=== PATIENT | female | born 1990 | race Caucasian/White ===

== ENCOUNTER 2017-09-22 16:04 | Emergency (ER) | payer OTHER, BC ==
[2017-09-22 16:15] VITALS: BP 115/80; PULSE 100; TEMP 97.8; BMI 21.7
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
[2017-09-22] MEDS ORDERED: ACETAMINOPHEN 500 MG TABLET (FP) PO ONE (18:13)
[2017-09-22] MEDS ORDERED: ACETAMINOPHEN 500 MG TABLET (FP) ONE (18:17)
== END 2017-09-22 19:15 | disposition home or self-care (01) ==
LOC: JERFT 16:04
DX: G44.319 Acute post-traumatic headache, not intractable (principal); V43.52XA Car driver injured in collision with other type car in traffic accident, initial encounter; Y92.414 Local residential or business street as the place of occurrence of the external cause; Y93.89 Activity, other specified; Y99.8 Other external cause status
CPT/HCPCS: 70450-TC; 72125-TC; 84703; 99281-25

== ENCOUNTER 2020-10-06 15:38 | Emergency (ER) | payer BC ==
[2020-10-06] MEDS ORDERED: SODIUM CHLORIDE 0.9% 500 ML INFUS.BAG IV ONE (15:41)
[2020-10-06] MEDS ORDERED: KETOROLAC TROMETHAMINE 30 MG/1 ML VIAL IVPUSH ONE (15:42)
[2020-10-06 15:52] VITALS: BP 110/76; PULSE 112; TEMP 98.4; BMI 22.8
[2020-10-06] MEDS ORDERED: KETOROLAC TROMETHAMINE 30 MG/1 ML VIAL ONE (16:13)
[2020-10-06 16:43] LABS: BASO % 0.2 % (0-2.0); EOS % 0.4 % (0-4.5); HEMATOCRIT 37.5 % (32.4-45.2); HEMOGLOBIN 12.6 GM/dL (10.7-15.3); LYMPH % 34.7 % (8-40); MCH 30.6 pg (25.7-33.7); MCHC 33.7 g/dl (32.0-36.0); MEAN CELL VOLUME 90.7 fl (80-96); MEAN PLT VOLUME 9.4 fl (7.5-11.1); MONO % 4.3 % (3.8-10.2); NEUT % 60.4 % (42.8-82.8); PLATELET COUNT 182 K/MM3 (134-434); RBC 4.14 M/mm3 (3.60-5.2); RDW 14.2 % (11.6-15.6); WHITE BLOOD COUNT 4.5 K/mm3 (4.0-10.0)
[2020-10-06 17:00] LABS: CHLORIDE 106 mmol/L (98-107); POTASSIUM 3.5 mmol/L (3.5-5.1); SODIUM 139 mmol/L (136-145)
[2020-10-06 17:02] LABS: CALCIUM 8.7 mg/dL (8.5-10.1)
[2020-10-06 17:03] LABS: ALBUMIN 4.2 g/dl (3.4-5.0); ANION GAP 8 MMOL/L (8-16); BLOOD UREA NITROGEN 11.6 mg/dL (7-18); CO2 26 mmol/L (21-32); GLUCOSE,RANDOM 160 mg/dL (74-106)
[2020-10-06 17:06] LABS: CREATININE 0.7 mg/dL (0.55-1.3); SGOT/AST 14 U/L (15-37); SGPT/ALT 22 U/L (13-61)
[2020-10-06 17:07] LABS: BILIRUBIN,TOTAL 0.2 mg/dL (0.2-1)
[2020-10-06 17:08] LABS: TOT PROT 6.8 g/dl (6.4-8.2)
[2020-10-06 17:09] LABS: ALK PHOS 60 U/L (45-117)
== END 2020-10-06 17:45 | disposition home or self-care (01) ==
LOC: JER 15:38
PROC: 3E0333Z Introduction of Anti-inflammatory into Peripheral Vein, Percutaneous Approach (ICD-10-PCS; principal; 2020-10-06)
DX: U07.1 COVID-19 (principal)
CPT/HCPCS: 36415; 71046-TC-FY; 80053; 82550; 84484; 84702; 85025; 93005; 93010; 99285-25

== ENCOUNTER 2021-01-07 01:56 | Emergency (ER) | payer BC ==
[2021-01-07 02:45] LABS: EPI CELLS 25 /uL (0-25.1); HYALINE CASTS 1 /uL (0-3.1); PH,URINE 5.5 (5.0-8.0); URINE APPEARANCE CLEAR; URINE BACTERIA 1406 /uL (0-1359); URINE BILIRUBIN NEGATIVE (NEGATIVE); URINE COLOR YELLOW; URINE GLUCOSE (UA) NEGATIVE (NEGATIVE); URINE KETONE NEGATIVE (NEGATIVE); URINE LEUK ESTERASE TRACE (NEGATIVE); URINE NITRITE NEGATIVE (NEGATIVE); URINE PROTEIN NEGATIVE (NEGATIVE); URINE RBC 5 /uL (0-23.9); URINE UROBILINOGEN 0.2 mg/dL (0.2-1.0); URINE WBC 20 /uL (0-25.8)
[2021-01-07] MEDS ORDERED: NITROFURANTOIN MACROCRYSTAL 50 MG CAPSULE (FP) PO ONE (03:00)
[2021-01-07] MEDS ORDERED: NITROFURANTOIN MACROCRYSTAL 50 MG CAPSULE (FP) ONE (03:00)
[2021-01-07 03:15] VITALS: BMI 21.6
[2021-01-07 04:20] VITALS: BP 110/76; PULSE 110; TEMP 98.6
== END 2021-01-07 04:16 | disposition home or self-care (01) ==
LOC: JER 01:56
DX: O9A.211 Injury, poisoning and certain other consequences of external causes complicating pregnancy, first trimester (principal); S39.91XA Unspecified injury of abdomen, initial encounter; Z3A.01 Less than 8 weeks gestation of pregnancy
CPT/HCPCS: 76817-TC; 81003; 87086; 99284-25

== ENCOUNTER 2021-08-16 04:00 | Inpatient (IN) | payer BC ==
[2021-08-16] MEDS: ELECTROLYTE-148 SOLN 1,000 ML IV SCH ×2 (05:00→11:39)
[2021-08-16 05:49] VITALS: BMI 29.7
[2021-08-16 06:02] LABS: BASO % 0.3 % (0-2.0); EOS % 0.5 % (0-4.5); HEMATOCRIT 33.1 % (32.4-45.2); HEMOGLOBIN 11.2 GM/dL (10.7-15.3); MCH 30.7 pg (25.7-33.7); MCHC 33.7 g/dl (32.0-36.0); MEAN PLT VOLUME 8.9 fl (7.5-11.1); MONO % 7.3 % (3.8-10.2); NEUT % 76.9 % (42.8-82.8); PLATELET COUNT 169 10^3/uL (134-434); RBC 3.64 M/mm3 (3.60-5.2); RDW 14.1 % (11.6-15.6); WHITE BLOOD COUNT 11.5 K/mm3 (4.0-10.0)
[2021-08-16 06:10] LABS: INR 0.91 (0.83-1.09); PROTHROMBIN TIME (PATIENT) 10.4 SEC (9.7-13.0)
[2021-08-16 06:12] LABS: ACTIVATED PTT 27.1 SECONDS (25.2-36.5)
[2021-08-16 06:23] LABS: BLOOD UREA NITROGEN 13.2 mg/dL (7-18); CALCIUM 8.3 mg/dL (8.5-10.1)
[2021-08-16 06:27] LABS: CREATININE 0.5 mg/dL (0.55-1.3)
[2021-08-16] MEDS ORDERED: OXYTOCIN 30 UNITS in 0.9% NS 30 UNIT/500 ML INFUS.BAG IVPB SCH (09:00)
[2021-08-16] MEDS ORDERED: OXYTOCIN 30 UNITS in 0.9% NS 30 UNIT/500 ML INFUS.BAG IVPB ONE (09:52)
[2021-08-16] MEDS ORDERED: FENTANYL/BUPIVACAINE/NS/PF - PCEA - 50 ML DISP.SYRIN EP ONE ×2 (11:06→15:56)
[2021-08-16] MEDS ORDERED: NALOXONE HCL 0.4 MG/ML VIAL IVPUSH PRN (11:24)
[2021-08-16] MEDS ORDERED: FENTANYL/BUPIVACAINE/NS/PF - PCEA - 50 ML DISP.SYRIN EP SCH ×2 (11:30→12:06)
[2021-08-16] MEDS ORDERED: BUPIVACAINE HCL/PF 0.25% (2.5MG/ML) 10 ML VIAL ONE (14:57)
[2021-08-16] MEDS ORDERED: OXYTOCIN 20 UNITS in 0.9% NS 20 UNIT/1,000 ML INFUS.BAG IV ONE (16:39)
[2021-08-16] MEDS ORDERED: LIDOCAINE HCL 1% PRESERVATIVE FREE - 30ML VIAL ONE ×2 (16:39→17:15)
[2021-08-16] MEDS ORDERED: BENZOCAINE 20% 57 GM BOTTLE TP PRN (17:48)
[2021-08-16] MEDS ORDERED: BENZOCAINE 28 GM HEMORRHOIDAL OINTMENT TP PRN (17:48)
[2021-08-16] MEDS ORDERED: oxyCODONE HCL 5 MG TABLET PO PRN (17:48)
[2021-08-16] MEDS ORDERED: BISACODYL 10 MG SUPP.RECT RC PRN (17:48)
[2021-08-16] MEDS ORDERED: IBUPROFEN 600 MG TABLET (FP) PO PRN (17:48)
[2021-08-16] MEDS ORDERED: WITCH HAZEL 50% (TUCKS) 40 PAD/JAR PAD TP PRN (17:48)
[2021-08-16] MEDS ORDERED: METHYLERGONOVINE MALEATE 0.2 MG/1 ML AMP IM PRN (17:48)
[2021-08-16] MEDS ORDERED: OXYTOCIN 20 UNITS in 0.9% NS 20 UNIT/1,000 ML INFUS.BAG IV SCH (18:00)
[2021-08-16 18:19] LABS: CORD BASE EXCESS -9.1 mmol/L (0-2); CORD HCO3 19.6 mmHg (20-29); CORD PCO2 53.1 mmHg (30-78); CORD pH 7.185 (7.14-7.44)
[2021-08-16 18:21] LABS: CORD BASE EXCESS -4.8 mmol/L (0-2); CORD HCO3 20.5 mmHg (20-29); CORD pH 7.338 (7.14-7.44)
[2021-08-16] MEDS ORDERED: ACETAMINOPHEN 325 MG TABLET (FP) ONE (18:30)
[2021-08-16] MEDS: ACETAMINOPHEN 325 MG TABLET (FP) PO PRN ×2 (18:32→22:58)
[2021-08-17 06:59] LABS: BASO % 0.1 % (0-2.0); EOS % 0.3 % (0-4.5); HEMATOCRIT 30.1 % (32.4-45.2); HEMOGLOBIN 10.1 GM/dL (10.7-15.3); LYMPH % 14.7 % (8-40); MCH 30.8 pg (25.7-33.7); MCHC 33.7 g/dl (32.0-36.0); MEAN CELL VOLUME 91.6 fl (80-96); MEAN PLT VOLUME 8.8 fl (7.5-11.1); MONO % 5.5 % (3.8-10.2); NEUT % 79.4 % (42.8-82.8); PLATELET COUNT 155 10^3/uL (134-434); RBC 3.29 M/mm3 (3.60-5.2); RDW 14.2 % (11.6-15.6); WHITE BLOOD COUNT 14.3 K/mm3 (4.0-10.0)
[2021-08-17 10:42] LABS: POC NITRAZINE POS
[2021-08-17] MEDS: ACETAMINOPHEN 325 MG TABLET (FP) PO PRN ×3 (11:35→21:29)
[2021-08-17] MEDS ORDERED: SENNOSIDES/DOCUSATE COMBO (SENNA PLUS) TABLET (UD) PO PRN (22:00)
[2021-08-17] MEDS: ELECTROLYTE-148 SOLN 1,000 ML IV SCH ×2 (22:46)
[2021-08-18 15:24] VITALS: BP 100/59; PULSE 84; TEMP 97.8
== END 2021-08-18 15:20 | disposition home or self-care (01) | DRG 807 ==
LOC: JLDR 04:00 → J3W 20:43
PROVIDERS: ADMIT Obstetrics & Gynecology; ATTEND Obstetrics & Gynecology
PROC: 10E0XZZ Delivery of Products of Conception, External Approach (ICD-10-PCS; principal; 2021-08-16)
PROC: 0W8NXZZ Division of Female Perineum, External Approach (ICD-10-PCS; 2021-08-16)
DX: O42.02 Full-term premature rupture of membranes, onset of labor within 24 hours of rupture (principal); Z37.0 Single live birth; Z3A.37 37 weeks gestation of pregnancy
CPT/HCPCS: 36415; 36600; 59409; 80048; 82803; 83986-QW; 85025; 85610; 85730; 86780; 86850; 86900; 86901; C9803; U0003; U0005

== ENCOUNTER 2021-09-04 14:53 | Emergency (ER) | payer BC ==
[2021-09-04 15:21] VITALS: BP 133/73; PULSE 81; TEMP 97.7; BMI 26.6
[2021-09-04] MEDS ORDERED: ACETAMINOPHEN 1000 MG/100 ML BAG IVPB ONE (15:48)
[2021-09-04] MEDS ORDERED: SODIUM CHLORIDE 1,000 ML IV STA (15:48)
[2021-09-04 16:28] LABS: BASO % 0.3 % (0-2.0); EOS % 0.4 % (0-4.5); HEMATOCRIT 39.3 % (32.4-45.2); HEMOGLOBIN 13.2 GM/dL (10.7-15.3); LYMPH % 13.6 % (8-40); MCH 30.3 pg (25.7-33.7); MCHC 33.6 g/dl (32.0-36.0); MEAN CELL VOLUME 89.9 fl (80-96); MEAN PLT VOLUME 8.1 fl (7.5-11.1); NEUT % 78.7 % (42.8-82.8); PLATELET COUNT 291 10^3/uL (134-434); RBC 4.37 M/mm3 (3.60-5.2); RDW 13.6 % (11.6-15.6); WHITE BLOOD COUNT 10.2 K/mm3 (4.0-10.0)
[2021-09-04 16:33] LABS: EPI CELLS 10 /uL (0-25.1); HYALINE CASTS 1 /uL (0-3.1); PH,URINE 5.5 (5.0-8.0); URINE APPEARANCE CLEAR; URINE BACTERIA 55 /uL (0-1359); URINE BILIRUBIN NEGATIVE (NEGATIVE); URINE COLOR YELLOW; URINE GLUCOSE (UA) NEGATIVE (NEGATIVE); URINE KETONE NEGATIVE (NEGATIVE); URINE LEUK ESTERASE 2+ (NEGATIVE); URINE NITRITE NEGATIVE (NEGATIVE); URINE PROTEIN NEGATIVE (NEGATIVE); URINE RBC 17 /uL (0-23.9); URINE UROBILINOGEN 0.2 mg/dL (0.2-1.0); URINE WBC 86 /uL (0-25.8)
[2021-09-04 16:55] LABS: ALBUMIN 4.2 g/dl (3.4-5.0); BLOOD UREA NITROGEN 12.1 mg/dL (7-18); CALCIUM 9.6 mg/dL (8.5-10.1)
[2021-09-04 16:58] LABS: CREATININE 0.7 mg/dL (0.55-1.3)
[2021-09-04 17:00] LABS: BILIRUBIN,TOTAL 0.3 mg/dL (0.2-1); TOT PROT 7.2 g/dl (6.4-8.2)
[2021-09-05 10:07] LABS: SARS-CoV-2 NAA Not Detected (Not Detected)
== END 2021-09-04 20:44 ==
LOC: JERFT 14:53
PROC: 3E0333Z Introduction of Anti-inflammatory into Peripheral Vein, Percutaneous Approach (ICD-10-PCS; principal; 2021-09-04)
PROC: 3E0337Z Introduction of Electrolytic and Water Balance Substance into Peripheral Vein, Percutaneous Approach (ICD-10-PCS; 2021-09-04)
DX: N63.11 Unspecified lump in the right breast, upper outer quadrant (principal); R10.9 Unspecified abdominal pain; K59.00 Constipation, unspecified
CPT/HCPCS: 36415; 76642-TC-RT; 80053; 81003; 83690; 85025; 87086; 99284-25; C9803; U0003; U0005

== ENCOUNTER 2021-10-16 12:51 | Emergency (ER) | payer BC ==
[2021-10-16 13:30] VITALS: BMI 25.7
[2021-10-16] MEDS ORDERED: SODIUM CHLORIDE 0.9% 500 ML INFUS.BAG IV ONE (15:13)
[2021-10-16 15:59] LABS: BASO % 0.4 % (0-2.0); EOS % 0.7 % (0-4.5); HEMATOCRIT 36.8 % (32.4-45.2); HEMOGLOBIN 12.6 GM/dL (10.7-15.3); LYMPH % 10.8 % (8-40); MCH 29.8 pg (25.7-33.7); MCHC 34.2 g/dl (32.0-36.0); MEAN CELL VOLUME 87.1 fl (80-96); MEAN PLT VOLUME 8.3 fl (7.5-11.1); NEUT % 83.1 % (42.8-82.8); PLATELET COUNT 243 10^3/uL (134-434); RBC 4.23 M/mm3 (3.60-5.2); RDW 14.6 % (11.6-15.6); WHITE BLOOD COUNT 10.6 K/mm3 (4.0-10.0)
[2021-10-16 16:04] LABS: EPI CELLS 14 /uL (0-25.1); HYALINE CASTS 1 /uL (0-3.1); PH,URINE 5.5 (5.0-8.0); URINE APPEARANCE CLEAR; URINE BACTERIA 21 /uL (0-1359); URINE BILIRUBIN NEGATIVE (NEGATIVE); URINE COLOR ORANGE; URINE GLUCOSE (UA) NEGATIVE (NEGATIVE); URINE KETONE NEGATIVE (NEGATIVE); URINE LEUK ESTERASE TRACE (NEGATIVE); URINE NITRITE NEGATIVE (NEGATIVE); URINE PROTEIN TRACE (NEGATIVE); URINE RBC 7112 /uL (0-23.9); URINE WBC 45 /uL (0-25.8)
[2021-10-16] MEDS ORDERED: ACETAMINOPHEN 325 MG TABLET (FP) PO ONE (16:17)
[2021-10-16] MEDS ORDERED: ACETAMINOPHEN 325 MG TABLET (FP) ONE (16:21)
[2021-10-16 16:24] LABS: CALCIUM 8.6 mg/dL (8.5-10.1)
[2021-10-16 16:25] LABS: ALBUMIN 4.1 g/dl (3.4-5.0); BLOOD UREA NITROGEN 6.5 mg/dL (7-18)
[2021-10-16 16:28] VITALS: TEMP 98.1
[2021-10-16 16:28] LABS: CREATININE 0.7 mg/dL (0.55-1.3)
[2021-10-16 16:29] LABS: TOT PROT 7.2 g/dl (6.4-8.2)
[2021-10-16 16:30] LABS: BILIRUBIN,TOTAL 0.5 mg/dL (0.2-1)
[2021-10-16 18:16] VITALS: BP 115/77; PULSE 90
== END 2021-10-16 18:18 | disposition home or self-care (01) ==
LOC: JER 12:51
DX: R68.83 Chills (without fever) (principal)
CPT/HCPCS: 36415; 74177-TC; 80053; 81003; 83605; 84703; 85025; 87040; 87086; 99285-25

== ENCOUNTER 2021-10-29 16:40 | Emergency (ER) | payer BC ==
[2021-10-29 17:25] VITALS: TEMP 97.3; BMI 25.0
[2021-10-29 20:38] LABS: BASO % 0.1 % (0-2.0); EOS % 0.4 % (0-4.5); HEMATOCRIT 35.7 % (32.4-45.2); LYMPH % 11.6 % (8-40); MCH 28.7 pg (25.7-33.7); MCHC 33.5 g/dl (32.0-36.0); MEAN CELL VOLUME 85.8 fl (80-96); MEAN PLT VOLUME 8.2 fl (7.5-11.1); MONO % 5.6 % (3.8-10.2); NEUT % 82.3 % (42.8-82.8); PLATELET COUNT 241 10^3/uL (134-434); RBC 4.16 M/mm3 (3.60-5.2); RDW 14.8 % (11.6-15.6)
[2021-10-29 21:01] LABS: CALCIUM 8.8 mg/dL (8.5-10.1)
[2021-10-29 21:02] LABS: ALBUMIN 4.2 g/dl (3.4-5.0); BLOOD UREA NITROGEN 8.2 mg/dL (7-18)
[2021-10-29 21:05] LABS: CREATININE 0.6 mg/dL (0.55-1.3)
[2021-10-29 21:07] LABS: BILIRUBIN,TOTAL 0.4 mg/dL (0.2-1); TOT PROT 6.7 g/dl (6.4-8.2)
[2021-10-29 22:57] VITALS: BP 115/71; PULSE 83
== END 2021-10-29 22:57 | disposition home or self-care (01) ==
LOC: JER 16:40
DX: R07.89 Other chest pain (principal)
CPT/HCPCS: 36415; 71046-TC-FY; 80053; 84484; 84703; 85025; 85379; 93005; 93010; 99285-25

== ENCOUNTER 2022-05-02 17:41 | Emergency (ER) | payer BC ==
[2022-05-02 17:52] VITALS: BMI 24.1
[2022-05-02] MEDS ORDERED: SODIUM CHLORIDE 0.9% 500 ML INFUS.BAG IV ONE (18:05)
[2022-05-02] MEDS ORDERED: ACETAMINOPHEN 1000 MG/100 ML BAG IVPB ONE (18:11)
[2022-05-02] MEDS ORDERED: MAG HYDROX/AL HYDROX/SIMETH 30 ML UNIT-DOSE CUP PO ONE (18:12)
[2022-05-02] MEDS ORDERED: FAMOTIDINE 20 MG/50 ML IVPB 20 MG/50 ML MG IVPB ONE ×2 (18:12→18:24)
[2022-05-02] MEDS ORDERED: ONDANSETRON 4 MG/2 ML VIAL IVPUSH ONE (18:12)
[2022-05-02] MEDS ORDERED: ACETAMINOPHEN INJECTION 100 ML IVPB ONE (18:23)
[2022-05-02] MEDS ORDERED: ONDANSETRON 4 MG/2 ML VIAL ONE (18:24)
[2022-05-02 19:12] LABS: CALCIUM 8.3 mg/dL (8.5-10.1)
[2022-05-02 19:13] LABS: BLOOD UREA NITROGEN 6.6 mg/dL (7-18); MAGNESIUM 1.8 mg/dL (1.8-2.4)
[2022-05-02 19:16] LABS: CREATININE 0.7 mg/dL (0.55-1.3)
[2022-05-02 19:17] LABS: BASO % 0.2 % (0-2.0); HEMATOCRIT 35.2 % (32.4-45.2); HEMOGLOBIN 12.1 GM/dL (10.7-15.3); MCH 30.1 pg (25.7-33.7); MCHC 34.4 g/dl (32.0-36.0); MEAN CELL VOLUME 87.7 fl (80-96); MEAN PLT VOLUME 8.7 fl (7.5-11.1); MONO % 7.6 % (3.8-10.2); NEUT % 87.2 % (42.8-82.8); PLATELET COUNT 177 10^3/uL (134-434); RBC 4.01 M/mm3 (3.60-5.2); RDW 14.1 % (11.6-15.6); TOT PROT 6.7 g/dl (6.4-8.2); WHITE BLOOD COUNT 6.4 K/mm3 (4.0-10.0)
[2022-05-02 19:18] LABS: BILIRUBIN,TOTAL 0.3 mg/dL (0.2-1)
[2022-05-02 19:37] VITALS: BP 109/59
[2022-05-02] MEDS ORDERED: IBUPROFEN 400 MG TABLET (FP) PO ONE ×2 (20:34→20:46)
[2022-05-02 21:34] VITALS: PULSE 85; RESP 16; TEMP 98.5
== END 2022-05-02 22:19 | disposition home or self-care (01) ==
LOC: JER 17:41
PROC: 3E033GC Introduction of Other Therapeutic Substance into Peripheral Vein, Percutaneous Approach (ICD-10-PCS; principal; 2022-05-02)
DX: U07.1 COVID-19 (principal); R55 Syncope and collapse
CPT/HCPCS: 36415; 71045-TC-FY; 80053; 83735; 84484; 84703; 85025; 93005; 93010; 93308; 99285-25

== ENCOUNTER 2022-12-02 22:40 | Emergency (ER) | payer BC ==
[2022-12-02 22:46] VITALS: BP 110/64; PULSE 68; RESP 17; TEMP 97.8; BMI 24.1
[2022-12-02] MEDS ORDERED: ACETAMINOPHEN 325 MG TABLET (FP) PO ONE (23:19)
[2022-12-02] MEDS ORDERED: ACETAMINOPHEN 325 MG TABLET (FP) ONE (23:20)
== END 2022-12-03 00:59 | disposition home or self-care (01) ==
LOC: JER 22:40
DX: S69.92XA Unspecified injury of left wrist, hand and finger(s), initial encounter (principal); W20.8XXA Other cause of strike by thrown, projected or falling object, initial encounter
CPT/HCPCS: 73110-TC-LT-FY; 99283-25

== ENCOUNTER 2023-03-08 17:03 | Emergency (ER) | payer OTHER, BC ==
[2023-03-08 17:23] VITALS: BP 109/66; PULSE 83; RESP 17; TEMP 98.3; BMI 24.1
== END 2023-03-08 19:46 | disposition home or self-care (01) ==
LOC: JER 17:03
DX: M79.602 Pain in left arm (principal); R20.2 Paresthesia of skin; V43.52XA Car driver injured in collision with other type car in traffic accident, initial encounter; Y93.I9 Activity, other involving external motion
CPT/HCPCS: 70450-TC; 71046-TC-FY; 72125-TC; 73070-TC-LT-FY; 73090-TC-LT-FY; 73110-TC-LT-FY; 84703; 99285-25

== ENCOUNTER 2024-02-08 22:39 | Inpatient (IN) | payer BC ==
[2024-02-09] MEDS: ELECTROLYTE-148 SOLN 1,000 ML IV SCH
[2024-02-09 00:32] LABS: BASO % 0.2 % (0-2.0); HEMATOCRIT 31.6 % (32.4-45.2); HEMOGLOBIN 10.9 GM/dL (10.7-15.3); LYMPH % 16.8 % (8-40); MCH 30.1 pg (25.7-33.7); MCHC 34.5 g/dl (32.0-36.0); MEAN CELL VOLUME 87.3 fl (80-96); MEAN PLT VOLUME 9.3 fl (7.5-11.1); MONO % 5.4 % (3.8-10.2); NEUT % 76.6 % (42.8-82.8); PLATELET COUNT 186 10^3/uL (134-434); RBC 3.62 M/mm3 (3.60-5.2); RDW 14.5 % (11.6-15.6); WHITE BLOOD COUNT 13.2 K/mm3 (4.0-10.0)
[2024-02-09 00:46] LABS: INR 0.9 (0.83-1.09); PROTHROMBIN TIME (PATIENT) 10.4 SEC (9.7-13.0)
[2024-02-09 00:49] LABS: ACTIVATED PTT 27.2 SECONDS (25.2-36.5)
[2024-02-09 00:55] VITALS: BMI 29.6
[2024-02-09 00:56] LABS: BLOOD UREA NITROGEN 8.9 mg/dL (7-18); CALCIUM 7.9 mg/dL (8.5-10.1)
[2024-02-09 01:00] LABS: CREATININE 0.4 mg/dL (0.55-1.3)
[2024-02-09 02:10] LABS: HIV INTERPRETATION NEGATIVE (NEGATIVE)
[2024-02-09] MEDS ORDERED: FENTANYL/BUPIVACAINE/NS/PF - PCEA - 50 ML DISP.SYRIN EP ONE ×2 (02:24→07:10)
[2024-02-09] MEDS ORDERED: NALOXONE HCL 0.4 MG/ML VIAL IVPUSH PRN (02:33)
[2024-02-09] MEDS: FENTANYL/BUPIVACAINE/NS/PF - PCEA - 50 ML DISP.SYRIN EP SCH (02:50)
[2024-02-09] MEDS ORDERED: OXYTOCIN 20 UNITS in 0.9% NS 20 UNIT/1,000 ML INFUS.BAG IV ONE ×3 (07:27→11:27)
[2024-02-09] MEDS ORDERED: LIDOCAINE HCL 1% PRESERVATIVE FREE - 30ML VIAL ONE (07:27)
[2024-02-09] MEDS ORDERED: FENTANYL CITRATE/PF 50 MCG/ML VIAL ONE (07:47)
[2024-02-09] MEDS: OXYTOCIN 20 UNITS in 0.9% NS 20 UNIT/1,000 ML INFUS.BAG IV SCH (08:11)
[2024-02-09] MEDS ORDERED: WITCH HAZEL 50% (TUCKS) 40 PAD/JAR PAD TP PRN (08:29)
[2024-02-09] MEDS ORDERED: oxyCODONE HCL 5 MG TABLET PO PRN (08:29)
[2024-02-09] MEDS ORDERED: BENZOCAINE 28 GM HEMORRHOIDAL OINTMENT TP PRN (08:29)
[2024-02-09] MEDS ORDERED: IBUPROFEN 600 MG TABLET (FP) PO PRN (08:29)
[2024-02-09] MEDS ORDERED: BISACODYL 10 MG SUPP.RECT RC PRN (08:29)
[2024-02-09] MEDS: METHYLERGONOVINE MALEATE 0.2 MG/1 ML AMP IM PRN (09:45)
[2024-02-09] MEDS ORDERED: ACETAMINOPHEN 325 MG TABLET (FP) ONE (11:34)
[2024-02-09] MEDS: ACETAMINOPHEN 325 MG TABLET (FP) PO PRN (11:35)
[2024-02-09] MEDS: BENZOCAINE 20% 57 GM BOTTLE TP PRN (15:10)
[2024-02-09] MEDS: SENNOSIDES/DOCUSATE COMBO (SENNA PLUS) TABLET (UD) PO PRN (21:40)
[2024-02-10 07:08] LABS: BASO % 0.3 % (0-2.0); EOS % 0.9 % (0-4.5); HEMATOCRIT 31.1 % (32.4-45.2); HEMOGLOBIN 10.6 GM/dL (10.7-15.3); LYMPH % 18.6 % (8-40); MCH 30.6 pg (25.7-33.7); MCHC 34.1 g/dl (32.0-36.0); MEAN CELL VOLUME 89.6 fl (80-96); MEAN PLT VOLUME 9.8 fl (7.5-11.1); MONO % 5.1 % (3.8-10.2); NEUT % 75.1 % (42.8-82.8); PLATELET COUNT 164 10^3/uL (134-434); RBC 3.47 M/mm3 (3.60-5.2); RDW 13.9 % (11.6-15.6); WHITE BLOOD COUNT 13.3 K/mm3 (4.0-10.0)
[2024-02-11 09:21] VITALS: BP 106/67; PULSE 56; RESP 17; TEMP 98.3
== END 2024-02-11 12:20 | disposition home or self-care (01) | DRG 807 ==
LOC: JDEL 22:39 → JLDR 23:00 → J3W 02-09 11:40
PROVIDERS: ADMIT Obstetrics & Gynecology; ATTEND Obstetrics & Gynecology
PROC: 10E0XZZ Delivery of Products of Conception, External Approach (ICD-10-PCS; principal; 2024-02-09)
PROC: 0HQ9XZZ Repair Perineum Skin, External Approach (ICD-10-PCS; 2024-02-09)
PROC: 0W8NXZZ Division of Female Perineum, External Approach (ICD-10-PCS; 2024-02-09)
DX: O60.14X0 Preterm labor third trimester with preterm delivery third trimester, not applicable or unspecified (principal); O70.0 First degree perineal laceration during delivery; Z3A.36 36 weeks gestation of pregnancy; Z37.0 Single live birth
CPT/HCPCS: 36415; 59409; 80048; 85025; 85610; 85730; 86780; 86850; 86900; 86901; 87389